=== PATIENT | male | born 1930 | race Caucasian/White ===

== ENCOUNTER → 2017-03-05 | Outpatient (CLI) | payer OTHER | LOC: FIMAGING 15:23 | PROVIDERS: ATTEND Physical Medicine & Rehabilitation | DX: M48.06 Spinal stenosis, lumbar region (principal) ==

== ENCOUNTER → 2018-11-10 | Outpatient (CLI) | payer OTHER ==
[~2018-11-10] MED LIST: IOPAMIDOL (ISOVUE 370) 100 ML BTL IV ONE
== END ==
LOC: FIMAGING 08:04
PROVIDERS: ATTEND Otolaryngology
DX: C02.9 Malignant neoplasm of tongue, unspecified (principal); R59.1 Generalized enlarged lymph nodes; E04.1 Nontoxic single thyroid nodule; I65.23 Occlusion and stenosis of bilateral carotid arteries
CPT/HCPCS: 70491; Q9967; 82565-PO

== ENCOUNTER 2018-11-21 06:21 | Inpatient (IN) | payer OTHER ==
[2018-11-21] MEDS ORDERED: AZITHROMYCIN 250 MG TAB PO ONE (06:32)
[2018-11-21] MEDS ORDERED: methylPREDNISolone SOD SUCC 125 MG/2 ML VIAL IVP ONE (06:32)
[2018-11-21] MEDS ORDERED: IPRATROPIUM/ALBUTEROL 3 ML DEYVIAL IH ONE (06:32)
--- NOTE | 2018-11-21 06:32 | EDPHY ---
H & P Stated Complaint: SOB Time Seen by Provider: 11/21/18 06:30 - Medical/Surgical History Hx Asthma: No Hx Chronic Respiratory Disease: Yes Hx Diabetes: No Hx Cardiac Disease: Yes Hx Renal Disease: No Hx Cirrhosis: No Hx Alcoholism: No Hx HIV/AIDS: No Hx Splenectomy or Spleen Trauma: No Other PMH: HTN, Hyperlipidemia - Social History Smoking Status: Never smoked Allergies/Adverse Reactions: aspirin [Aspirin] Allergy (Severe, Verified 11/21/18 06:26) Swelling/neck,face,throat TETRACYCLILNE Allergy (Mild, Uncoded 11/26/10 09:59) Rash Home Medications: Medication Instructions Recorded Acetaminophen [Tylenol ES 500 mg 500 mg PO DAILY PRN 05/11/15 (*)] Alfuzosin HCl [Uroxatral 10 MG] 10 mg PO HS 05/11/15 Amitriptyline HCl 25 mg PO HS 05/11/15 Diltiazem HCl [Diltiazem 24Hr ER] 240 mg PO HS 05/11/15 Ezetimibe [Zetia 10 MG (*)] 10 mg PO HS 05/11/15 Losartan Potassium [Cozaar] 100 mg PO HS 05/11/15 Lovastatin [Altoprev] 20 mg PO HS 05/11/15 Multivitamins [Multivitamin (*)] 1 tab PO DAILY 05/11/15 Niacin [Niacin 500 mg (*)] 500 mg PO HS 05/11/15 [place]-3 Ethyl Est-Lovaza [Lovaza 1 1 gm PO HS 05/11/15 gm (*)] Pantoprazole Sodium [Protonix 40mg 40 mg PO HS 05/11/15 (*)] TESTOSTERONE [Androgel 1.62% pump] 1 krystal TD DAILY 05/11/15 celeCOXIB [Celebrex (*)] 200 mg PO HS 05/11/15 Clindamycin 300 mg PO Q6 #0 cap 05/13/15 Departure - Departure Referrals: Patient,NotPresent [Primary Care Provider] - As per Instructions
--- NOTE | 2018-11-21 06:36 | EDPHY ---
H & P Stated Complaint: SOB Time Seen by Provider: 11/21/18 06:30 HPI/ROS: HPI The patient presents with shortness of breath and cough with chest congestion. 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 Garza. He went home and 2 days ago was doing well, tolerating fluids. Yesterday he felt worse, not eating much and was generally fatigued. When he went to bed last night his noted that he was congested and coughing a bit. This morning he awoke at 5 :00 a.m. Said he was having trouble breathing and a productive cough and wanted to go to the hospital. The patient worse 5 L of oxygen at all times for hypoxia related to likely underlying COPD. When paramedics arrived patient's sats were in the 80s. He required CPAP to improve his oxygenation. He has not had any chest pain. REVIEW OF SYSTEMS 10 systems were reviewed and negative with the exception of the elements mentioned in the history of present illness. PMHx: History of hypoxia on chronic home O2, COPD, MAGUE, CAD, hypertension, history of lung cancer status post VATS in 2011, primary care doctor is Dr. Leon Soc Hx: Lives at home with his PHYSICAL General Appearance: Alert, tachypneic, CPAP in place Eyes: Pupils equal and round no pallor or injection ENT, Mouth: Mucous membranes dry, right tongue with large area of yellowish granulation tissue, there is no significant edema of the tongue or the posterior pharynx Respiratory: Coarse breath sounds throughout all lung leiva with diminished breath sounds at left base, patient is tachypneic with retractions Cardiovascular: Tachycardic rate and regular rhythm Gastrointestinal: Abdomen is soft and non-tender, no masses, bowel sounds normal Neurological: A&O, moves all extremities Skin: Warm and dry, no rashes Musculoskeletal: Neck is supple non tender Extremities: symmetrical, full range of motion Psychiatric: Patient is oriented X 3, there is no agitation Source: Patient, Family, Old records Exam Limitations: Clinical condition - Personal History Current Tetanus/Diphtheria Vaccine: Yes - Medical/Surgical History Hx Asthma: No Hx Chronic Respiratory Disease: Yes Hx Diabetes: No Hx Cardiac Disease: Yes Hx Renal Disease: No Hx Cirrhosis: No Hx Alcoholism: No Hx HIV/AIDS: No Hx Splenectomy or Spleen Trauma: No Other PMH: HTN, Hyperlipidemia - Social History Smoking Status: Never smoked Constitutional: Initial Vital Signs Temperature (C) 37.3 C 11/21/18 06:25 Heart Rate 130 H 11/21/18 06:25 Respiratory Rate 46 H 11/21/18 06:25 Blood Pressure 159/87 H 11/21/18 06:25 O2 Sat (%) 92 11/21/18 06:25 O2 Delivery Mode Bi-Pap O2 (L/minute) 15 Allergies/Adverse Reactions: aspirin [Aspirin] Allergy (Severe, Verified 11/21/18 06:26) Swelling/neck,face,throat TETRACYCLILNE Allergy (Mild, Uncoded 11/26/10 09:59) Rash Home Medications: Medication Instructions Recorded Acetaminophen [Tylenol ES 500 mg 500 mg PO QID PRN 05/11/15 (*)] Alfuzosin HCl [Uroxatral 10 MG] 10 mg PO HS 05/11/15 [place]-3 Ethyl Est-Lovaza [Lovaza 1 1 gm PO HS 05/11/15 gm (*)] Pantoprazole Sodium [Protonix 40mg 40 mg PO HS 05/11/15 (*)] Calcium Carbonate [Tums 500MG (*)] 500 mg PO QID PRN 11/21/18 Cholecalciferol Vit D3 [Vitamin D3 1,000 unit PO DAILY 11/21/18 (*)] Doxazosin Mesylate [Cardura 1 MG 1 mg PO HS 11/21/18 (*)] Ipratropium Canones [IPRATROPIUM 2 sprays NASAL DAILY 11/21/18 BROMIDE] Medical Decision Making - Diagnostics EKG Interpretation: EKG: Complete interpretation has been separately recorded in the [facility] archive. Summary impression: Sinus tachycardia Imaging Results: Chest x-ray single view shows left lower lobe infiltrate, interpreted by me, radiology interpretation is pending. Imaging: I viewed and interpreted images myself Differential Diagnosis: This is an 87-year-old man with past medical history of COPD, lung CA status post VATS, MAGUE, CAD, hypertension, who is his 3 day postoperative from removal of a right tongue squamous cell carcinoma who presents brought in by ambulance emergently for shortness of breath and hypoxia. He usually wears about 5 L nasal cannula throughout the day, however was hypoxic despite this. Paramedics have placed him on CPAP with improvement in his saturations to the 80s. I met the paramedics at the bedside to obtain their report. The patient was started on our BiPAP with sats in high 80s. He is given nebs in-line. He will be given treatment for COPD exacerbation with Solu-Medrol. I will also cover him for aspiration pneumonia. Chest x-ray was performed showing left lower lobe pneumonia which could very well be due to aspiration. He was given Zosyn for coverage for aspiration pneumonia. He was given a fluid bolus. I consulted with the patient's primary care doctor Dr. Leon. We plan to admit the patient to the ICU. I talked to the patient's and she would like to avoid intubation unless it is an emergency and absolutely necessary. Since he has been here he has improved after receiving BiPAP with sats in the low 90s though he does have significant work of breathing. He remained on BiPAP throughout his time here. Critical Care Time: CRITICAL CARE Critical care time spent by me, Dr. Russell, exclusively with this patient was 45 minutes, exclusive of PA time and exclusive of procedures. The organ system at risk was respiratory, cardiac and I gave IV fluids, antibiotics, positive pressure ventilation, transfer the patient to the ICU, consulted with the patient's primary care doctor to prevent worsening of the patients condition. - Data Points Laboratory Results: Laboratory Results 11/21/18 06:35 11/21/18 06:35 Medications Given: Acetylcysteine (Acetylcysteine 20% Ih/Po) 2 ml IH QID MYNOR Stop: 05/20/19 15:59 Last Admin: 11/21/18 21:38 Dose: 2 ml Albuterol/Ipratropium (Duoneb) 3 ml IH QID MYNOR Stop: 05/20/19 15:59 Last Admin: 11/21/18 21:38 Dose: 3 ml Enoxaparin Sodium (Lovenox) 40 mg SC DAILY MYNOR Stop: 05/20/19 10:59 Last Admin: 11/21/18 12:02 Dose: 40 mg Potassium Chloride/Dextrose/Sod Cl (D5w 1/2 Ns W/ 20 Kcl/L) 1,000 mls @ 100 mls /hr IV CONT MYNOR Stop: 05/20/19 08:44 Last Admin: 11/21/18 09:55 Dose: 1,000 mls Azithromycin 500 mg/ Sodium (Chloride) 255 mls @ 255 mls/hr IV DAILY MYNOR PRN Reason: Protocol Stop: 12/21/18 08:59 Last Admin: 11/21/18 09:53 Dose: 255 mls Piperacillin/Tazobactam/Dextrose (Zosyn 3.375 Gm (Premix)) 50 mls @ 100 mls/hr IV Q6HRS MYNOR PRN Reason: Protocol Stop: 12/21/18 11:59 Last Admin: 11/21/18 19:03 Dose: 50 mls Famotidine/Sodium Chloride (Pepcid 20 Mg (Premix)) 50 mls @ 200 mls/hr IV Q12HRS MYNOR Stop: 05/20/19 20:59 Last Admin: 11/21/18 20:58 Dose: 50 mls Ipratropium Canones (Atrovent 0.06% Nasal) 2 sprays NS DAILY MYNOR Stop: 05/20/19 18:14 Last Admin: 11/21/18 18:22 Dose: 2 spr Methylprednisolone Sodium Succinate (Solu-Medrol) 60 mg IVP Q12 MYNOR Stop: 05/20/19 20:59 Last Admin: 11/21/18 20:58 Dose: 60 mg Morphine Sulfate (Morphine) 1 - 2 mg IVP Q1HR PRN PRN Reason: Pain, Severe Unable to Take PO Stop: 12/01/18 08:42 Last Admin: 11/21/18 18:16 Dose: 2 mg Discontinued Medications Albuterol/Ipratropium (Duoneb) 3 ml IH EDNOW ONE Stop: 11/21/18 06:33 Last Admin: 11/21/18 06:44 Dose: 3 ml Azithromycin (Zithromax) 500 mg PO EDNOW ONE PRN Reason: Protocol Stop: 11/21/18 06:33 Last Admin: 11/21/18 06:42 Dose: Not Given Ceftriaxone Sodium/Dextrose (Rocephin 1 Gm (Premix)) 50 mls @ 100 mls/hr IV EDNOW ONE PRN Reason: Protocol Stop: 11/21/18 07:01 Last Admin: 11/21/18 06:42 Dose: Not Given Sodium Chloride (Ns) 1,000 mls @ 0 mls/hr IV ONCE ONE; Wide Open PRN Reason: Protocol Stop: 11/21/18 06:33 Last Admin: 11/21/18 06:56 Dose: Not Given Piperacillin/Tazobactam/Dextrose (Zosyn (Premix)) 100 mls @ 200 mls/hr IV EDNOW ONE PRN Reason: Protocol Stop: 11/21/18 07:09 Last Admin: 11/21/18 06:54 Dose: 100 mls Sodium Chloride (Ns) 2,800 mls @ 5,600 mls/hr 30 ml/kg infuse over 30 min ( 2800 ml) IV EDNOW ONE PRN Reason: Protocol Stop: 11/21/18 07:19 Last Admin: 11/21/18 06:55 Dose: 2,800 mls Methylprednisolone Sodium Succinate (Solu-Medrol) 125 mg IVP EDNOW ONE Stop: 11/21/18 06:33 Last Admin: 11/21/18 06:41 Dose: 125 mg Point of Care Test Results: Chemistry 11/21/18 11/21/18 06:34 06:31 POC Sodium 139 mEq/L mEq/L (135-145) POC Potassium 3.8 mEq/L mEq/L (3.3-5.0) POC Chloride 99 mEq/L mEq/L (97-110) POC BUN 19 mg/dL mg/dL (7-23) POC Creatinine 0.6 mg/dL L mg/dL (0.7-1.3) POC Glucose 158 mg/dL H mg/dL (70-100) POC Troponin I 0.00 ng/mL ng/mL (0.00-0.08) ISTAT H&H 11/21/18 06:34 POC Hgb 13.3 gm/dL L gm/dL (13.7-17.5) POC Hct 39 % L % (40-51) Departure - Departure Disposition: [facility] Acute Clinical Impression: Aspiration pneumonia, Hypoxia, Tachycardia Condition: Critical
[2018-11-21] MEDS ORDERED: PIPERACILLIN/TAZO 4.5 GM/DEX 100 ML IV ONE (06:40)
[2018-11-21] MEDS: NS 1,000 ML IV ONE ×2 (06:41→06:56)
[2018-11-21] MEDS ORDERED: NS 2,800 ML IV ONE (06:50)
[2018-11-21] MEDS: AZITHROMYCIN IV 500 MG in NS 250 ML IV SCH (09:53)
[2018-11-21] MEDS: D5W 1/2 NS W/ 20 KCl/L 1,000 ML IV SCH (09:55)
[2018-11-21] MEDS ORDERED: IPRATROPIUM/ALBUTEROL 3 ML DEYVIAL IH PRN (10:41)
[2018-11-21] MEDS: ENOXAPARIN 40 MG/0.4 ML SYR SC SCH (12:02)
[2018-11-21] MEDS: PIPERACILLIN/TAZO 3.375 GM/DEX 50 ML IV SCH ×2 (12:50→19:03)
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
--- NOTE | 2018-11-21 14:01 | ASMTCMCOM ---
CM Note CM Note Notes: Pt is a 87 year old male who presents with pnemonia. Pt has a history of COPD and lung cancer. is on 5L home O2 at baseline. Pt recently had tumor on tounge removed. CM and Chapjameyan met with pt's Melvin for family meeting. 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 Melvin reports pt is "stuboorn" and often feels he doesn't think he can improve and does not always put forth effort to exercise. Pt is linked with Dr Phipps at [facility] and see's Dr. Morrison. Melvin is hopeful and appreciate that pt will see PT/OT/Speech here. CM provided education on outpatient services. Melvin reports pt reports his most pain is in his throat from where the intubation tube was during surgery. CM/churner provided education on Palliative Care services. Pt will likely say no at this time but Mitchellrichard was appreciative of information for the future. CM to continue to follow. Plan:D/C needs TBD at this time. Date Signed: 11/21/2018 02:01 PM Electronically Signed By:KENNY Nesbitt
--- NOTE | 2018-11-21 15:32 | PDMN ---
Medical Necessity Medical necessity: [facility] M283 Aspiration Pneumonia, 3 days: 87 yo presents w/ cough SOB in setting of recent large biopsy to R tongue three days prior. Workup reveals aspiration pneumonia and is clinically aspirating currently w/ bedside swallow eval. NPO. plan for video esophagram. Potential for NGT for nutrition. Treat w/ IV antibx, IVF. Pt w/ leukocytosis and elevated lactic acid 2.2. Tachy 130, O2 needs require CPAP/BIPAP, tachypneac w/ RR 24-40s. Admit to IP status in ICU. Meets IP criteria for asp PNA w/ hemodynamic instability, persistent tachypnea and hypoxemia. Hx COPD on chronic O2 5L, wedge resect RLL for lung ca
[2018-11-21] MEDS: ACETYLCYSTEINE 20% IH/PO 4 ML VIAL IH SCH ×2 (16:37→21:38)
[2018-11-21] MEDS: IPRATROPIUM/ALBUTEROL 3 ML DEYVIAL IH SCH ×2 (16:38→21:38)
[2018-11-21] MEDS ORDERED: ACETYLCYSTEINE 20% IH/PO 4 ML VIAL IH SCH (18:00)
[2018-11-21] MEDS: IPRATROPIUM 0.06% NASAL SPRAY NS SCH (18:22)
--- NOTE | 2018-11-21 20:33 | SOAPPROG ---
SOAP Progress Note Assessment/Plan: Assessment: Concern re fluid overload. Plan: Will check a CXR now. 11/21/18 20:32 Subjective: Much better than this morning. He does have excessivek fluid in velia back ofhis throat. He got 5 L of NS in the ER this morning due to concern regarding sepsis. Objective: Vital Signs Temp Pulse Resp BP Pulse Ox 99.7 F 72 20 90/50 L 90 L 11/21/18 20:00 11/21/18 20:00 11/21/18 20:00 11/21/18 20:00 11/21/18 20:00 11/20/18 11/21/18 11/22/18 05:59 05:59 05:59 Intake Total 3700 Output Total 360 Balance 3340 ICD10 Worksheet Patient Problems: Problems Problem Status Onset Aspiration pneumonia Acute Hypoxia Acute Tachycardia Acute Submental abscess Acute
[2018-11-21] MEDS: methylPREDNISolone SOD SUCC 125 MG/2 ML VIAL IVP SCH (20:58)
[2018-11-21] MEDS: FAMOTIDINE 20 MG/NACL 50 ML IV SCH (20:58)
[2018-11-22] MEDS: PIPERACILLIN/TAZO 3.375 GM/DEX 50 ML IV SCH ×2 (00:15→05:29)
[2018-11-22] MEDS: D5W 1/2 NS W/ 20 KCl/L 1,000 ML IV SCH ×2 (04:52→19:43)
[2018-11-22 04:57] LABS: PLATELET COUNT 212 10^3/uL (150-400)
[2018-11-22] MEDS: IPRATROPIUM/ALBUTEROL 3 ML DEYVIAL IH SCH ×4 (06:22→20:00)
[2018-11-22] MEDS: ACETYLCYSTEINE 20% IH/PO 4 ML VIAL IH SCH ×4 (06:23→20:00)
--- NOTE | 2018-11-22 06:31 | CPEKG ---
Test Reason : OPEN Blood Pressure : / mmHG Vent. Rate : 129 BPM Atrial Rate : 130 BPM P-R Int : 172 ms QRS Dur : 092 ms QT Int : 287 ms P-R-T Axes : 073 025 121 degrees QTc Int : 421 ms Sinus tachycardia Probable left atrial enlargement Repolarization abnormality, prob rate related Confirmed by Cynthia Russell ([id number]) on 11/22/2018 6:30:49 AM Referred By: PHYSICIAN ED Confirmed By:Cynthia Russell
[2018-11-22] MEDS: methylPREDNISolone SOD SUCC 125 MG/2 ML VIAL IVP SCH ×2 (09:25→19:42)
[2018-11-22] MEDS: AZITHROMYCIN IV 500 MG in NS 250 ML IV SCH (09:25)
[2018-11-22] MEDS: FAMOTIDINE 20 MG/NACL 50 ML IV SCH ×2 (09:25→19:42)
[2018-11-22] MEDS: ENOXAPARIN 40 MG/0.4 ML SYR SC SCH (09:25)
[2018-11-22] MEDS: IPRATROPIUM 0.06% NASAL SPRAY NS SCH (09:43)
--- NOTE | 2018-11-22 10:20 | GHP ---
[f rep st] HISTORY AND PHYSICAL DATE OF ADMISSION: 11/21/2018 REASON FOR ADMISSION: Aspiration pneumonia. HISTORY: The patient is an 87-year-old male who had surgery on his tongue for squamous cell carcinoma of the tongue on Wednesday. On Wednesday, he was able to eat liquids; however, on Wednesday he was not able to eat, developed a cough and a fever. He presented Wednesday morning with hypoxia and elevated white count and elevated lactic acid. PAST MEDICAL HISTORY: Significant for non-small cell lung cancer, status post resection with presumptive cure. He also has a history of central sleep apnea, chronic hypoxia, and back pain. He has an elevated coronary calcium score. History is not available from the patient because he is on a BiPAP, and he can in marginally communicate. His provided the history. He denies chest pain or palpitations. He has had a cough and has had fever. PHYSICAL EXAM: GENERAL: An 87-year-old male, wearing a BiPAP mask set at 12 respirations per minute. He is overriding at 24 respirations per minute. His saturations, however, are 100% on supplemental oxygen. He responds to questions with thumbs up, thumbs down. He denies being in significant discomfort at this time although does have swollen lips. VITAL SIGNS: Blood pressure when he presented was 159/87, heart rate of 130, respiratory rate was 46. That was at 6:25 in the morning. By 2:00 in the afternoon, his blood pressure was 142/52. Oxygen saturation was 90% on 5 L, respiratory rate of 26. LUNGS: Reveal scattered rhonchi. HEART: Regular rate, slightly irregular rhythm, slightly rapid rate. ABDOMEN: Nontender. He has no peripheral edema. IMPRESSION: Probable aspiration pneumonia related to his tongue surgery. PLAN: We will place on IV antibiotics. Because of his recent surgery, he will need extended-spectrum antibiotics. We will support him. His blood pressure is good. He had an elevated lactate; however, that is likely related to his hypoxia. He has a long history of central hypoventilation and chronic hypoxia, and he can be very comfortable with an oxygen saturation of 82%. We will place on IV antibiotics, continue support. We will try to avoid intubation. /[id number]/MODL MTDD
[2018-11-22] MEDS: ERTAPENEM 1 GM in NS 100 ML IV SCH (10:46)
--- NOTE | 2018-11-22 12:55 | PDINTPN ---
General Maintenance Technician Progress Note Assessment/Plan: Assessment: Bibasilar pneumonia, probable aspiration. On ertapenem and azithromycin. The latter for 5 days. Clinically better, secretions improving Status post tongue biopsy/partial resection. Phonation improved today. Doing better. Aspiration/aspiration risk. Speech to re-evaluate patient today. Will likely need a [place] barium swallow. COPD: With exacerbation. On bronchodilators and steroids, mucolytics. Prophylaxis: On enoxaparin and famotidine. Anemia: Hematocrit down to 27. Multifactorial. Following. Metabolic: No issues identified. Plan: Continue antibiotics. Continue bronchopulmonary therapies. Can decrease steroids. Follow x-ray intermittently. Follow laboratory. Will discuss with speech therapy after they see patient today. If not clearly better regarding aspiration/aspiration risk will proceed with [place] barium swallow. 35 min of critical care time spent directly with the patient managing issues as outlined above. Discussed with the patient and his , Dr. Leon, respiratory, nursing, and the ICU multidisciplinary team. Subjective: Feels better. Less cough. Able to bring up a small amount of sputum at times. Less short of breath. Objective: Vital Signs Temp Pulse Resp BP Pulse Ox 36.9 C 84 23 H 116/49 L 89 L 11/22/18 11:48 11/22/18 11:48 11/22/18 11:48 11/22/18 11:48 11/22/18 11:48 Microbiology 11/21/18 13:00 - Final Sputum, Expectorated Laboratory Results 11/22/18 04:25 11/22/18 04:25 11/21/18 11/22/18 11/23/18 05:59 05:59 05:59 Intake Total 5060 Output Total 660 225 Balance 4400 -225 Laboratory Tests 11/22/18 04:25 Calcium 8.7 Phosphorus 3.0 Magnesium 2.2 AST 37 ALT 28 Albumin 3.0 L CXR: Some progression of bibasilar infiltrate seen. Physical Exam - Physical Exam General Appearance: alert, no apparent distress, other (Phonation is much better ) EENT: PERRL/EOMI, other (Nasal cannula in place at 5 L: His baseline.) Neck: normal inspection (No JVD) Respiratory: decreased breath sounds, rales (Bibasilar rales), rhonchi (Few rhonchi present today, much better.), other (e to a changes at the left base is present), No lungs clear, No normal breath sounds, No wheezing Cardiac/Chest: regular rate, rhythm, No gallop Abdomen: normal bowel sounds, non-tender, soft Male Genitalia: other (No Gregg catheter) Skin: normal color, warm/dry Extremities: pedal edema (Trace) Neuro/Psych: no motor/sensory deficits (Weak), No cognition abnormalities ICD10 Worksheet Patient Problems: Problems Problem Status Onset Submental abscess Acute Aspiration pneumonia Acute Hypoxia Acute Tachycardia Acute
--- NOTE | 2018-11-22 21:58 | SOAPPROG ---
SOAP Progress Note Assessment/Plan: Assessment: Pneumonia improved. No significant fluid overload. Probable drug reaction, suspect zosyn Plan: Continue with antibiotics. Will change from zosyn due to rash. 11/21/18 20:32 11/22/18 21:56 11/22/18 21:57 Subjective: Feeling better. No pain. SOB improved. Cough reduced Objective: Vital Signs Temp Pulse Resp BP Pulse Ox 98.1 F 80 21 H 120/52 L 93 11/22/18 19:32 11/22/18 19:32 11/22/18 19:32 11/22/18 19:32 11/22/18 19:32 Microbiology 11/21/18 13:00 - Final Sputum, Expectorated Laboratory Results 11/22/18 04:25 11/22/18 04:25 11/21/18 11/22/18 11/23/18 05:59 05:59 05:59 Intake Total 5060 1569 Output Total 660 725 Balance 4400 844 Cor RRR. Lungs with scattered rhonchi, improved significantly from last night. Video esophagram reviewed. Speech input appreciated. Diffuse red, non-pruritic rash on body. ICD10 Worksheet Patient Problems: Problems Problem Status Onset Aspiration pneumonia Acute Hypoxia Acute Tachycardia Acute Submental abscess Acute
[2018-11-23] MEDS: ACETYLCYSTEINE 20% IH/PO 4 ML VIAL IH SCH (05:34)
[2018-11-23] MEDS: IPRATROPIUM/ALBUTEROL 3 ML DEYVIAL IH SCH ×2 (05:34→11:27)
[2018-11-23] MEDS: IPRATROPIUM 0.06% NASAL SPRAY NS SCH (05:59)
[2018-11-23] MEDS: D5W 1/2 NS W/ 20 KCl/L 1,000 ML IV SCH ×2 (06:01→08:09)
[2018-11-23] MEDS: ERTAPENEM 1 GM in NS 100 ML IV SCH (08:04)
[2018-11-23] MEDS: FAMOTIDINE 20 MG/NACL 50 ML IV SCH (08:04)
[2018-11-23] MEDS: methylPREDNISolone SOD SUCC 125 MG/2 ML VIAL IVP SCH (08:04)
[2018-11-23] MEDS: ENOXAPARIN 40 MG/0.4 ML SYR SC SCH (08:04)
[2018-11-23] MEDS: AZITHROMYCIN IV 500 MG in NS 250 ML IV SCH (08:05)
[2018-11-23] MEDS ORDERED: OXYCODONE/APAP 5/325 TAB PO PRN (09:07)
--- NOTE | 2018-11-23 09:07 | SOAPPROG ---
SOAP Progress Note Assessment/Plan: Assessment: Plan: 11/23/18 09:06 COPD with probable aspiration pneumonia related to tongue bx surgery last wednesday. He has made great progress. Will d/c home on Augmentin, Zithomax and prednisone. Will continue oxygen therapy as he has this at home. low back pain, refill percocet Subjective: Andrea feels well and wants to go home. Walking, eating and toileting well. No SOB above baseline. Saturations and oxygen requirements at baseline Objective: Vital Signs Temp Pulse Resp BP Pulse Ox 36.2 C 67 18 167/67 H 94 11/23/18 07:33 11/23/18 07:33 11/23/18 07:33 11/23/18 07:33 11/23/18 07:33 Microbiology 11/21/18 13:00 - Final Sputum, Expectorated Laboratory Results 11/22/18 04:25 11/22/18 04:25 11/22/18 11/23/18 11/24/18 05:59 05:59 05:59 Intake Total 5060 2811 Output Total 660 1275 125 Balance 4400 1536 -125 Gen: Bright Lungs: diminished BS, minimal productivity with cough, crackle in bases R>L Heart: RRR Abd + bs , soft LE's williams edema ICD10 Worksheet Patient Problems: Problems Problem Status Onset Aspiration pneumonia Acute Hypoxia Acute Tachycardia Acute Submental abscess Acute
[2018-11-23 10:52] LABS: PLATELET COUNT 272 10^3/uL (150-400)
--- NOTE | 2018-11-23 11:06 | ASMTDCNOTE ---
Case Management Discharge Discharge Order Complete? Answers: Yes Patient to Obtain Answers: via Family Medications Transportation Arranged Answers: Family/Friends Faxed Final Orders Answers: Yes Agency/Facility Transfer Answers: Yes Report Printed & Faxed to Receiving Agency Family Notified Answers: Yes Discharge Comments Notes: CM met with pt and discussed with RN/Therapies. PT/OT recommending Homecare. Pt was reluctant but was eventually agreeable to [facility] homecare if they come the 2nd day after discharge. CM provided information to [facility]. CM answered questions and concerns. Family to transport. CM called and left message for ESPERANZA Alberto at ([phone]) to request interagency form for PT/OT. No other CM needs identified at this time. Date Signed: 11/23/2018 11:04 AM Electronically Signed By:KENNY Nesbitt
--- NOTE | 2018-11-23 11:08 | ASDISCHSUM ---
Discharge Information Plan Status:Home with Home Health Medically Cleared to Leave: Discharge Date: D/C Disposition:Home Health Service ADT D/C Disposition: Projected Discharge Date: Transportation at D/C:Family Discharge Delay Reason: Follow-Up Date: Discharge Slot: Final Diagnosis: Placement Information Patient Contact Information Contact Name:HERBERHEBERTADI Relationship: Address:[address] [place] [address] City:[place] Alternate Phone: State/Zip Code:[place] [address] Email: Financial Information Financial Class:Medicare Primary Plan Desc:MEDICARE INPATIENT Primary Plan Number:[id number] Secondary Plan Desc:DANYELLE ORTIZ PPO POS Secondary Plan Number:[id number] Assessment Information [facility] Progress Note CM Note CM Note Notes: Pt is a 87 year old male who presents with pnemonia. Pt has a history of COPD and lung cancer. is on 5L home O2 at baseline. Pt recently had tumor on tounge removed. NAHEED and Brannon met with pt's Melvin for family meeting. 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 Melvin reports pt is "stuboorn" and often feels he doesn't think he can improve and does not always put forth effort to exercise. Pt is linked with Dr Phipps at [facility] and see's Dr. Morrison. Melvin is hopeful and appreciate that pt will see PT/OT/Speech here. CM provided education on outpatient services. Melvin reports pt reports his most pain is in his throat from where the intubation tube was during surgery. CM/cooker loader provided education on Palliative Care services. Pt will likely say no at this time but Melvin was appreciative of information for the future. CM to continue to follow. Plan:D/C needs TBD at this time. Date Signed: 11/21/2018 02:01 PM Electronically Signed By:KENNY Nesbitt LACE LACE Length of stay for Answers: 2 days current admission Acuity / Level of Answers: Yes Care: Did the patient have an inpatient admission? Comorbidities - select Answers: Any tumor (including all that apply lymphoma or leukemia) Chronic pulmonary disease Coronary Artery Disease Other Notes: HTN; HLD # of Emergency department Answers: 1-2 visits in the last 6 months Score: 13 Date Signed: 11/23/2018 11:07 AM Electronically Signed By:KENNY Nesbitt Case Management Discharge Plan Note Case Management Discharge Discharge Order Complete? Answers: Yes Patient to Obtain Answers: via Family Medications Transportation Arranged Answers: Family/Friends Faxed Final Orders Answers: Yes Agency/Facility Transfer Answers: Yes Report Printed & Faxed to Receiving Agency Family Notified Answers: Yes Discharge Comments Notes: CM met with pt and discussed with RN/Therapies. PT/OT recommending Homecare. Pt was reluctant but was eventually agreeable to [facility] homecare if they come the 2nd day after discharge. CM provided information to [facility]. CM answered questions and concerns. Family to transport. CM called and left message for ESPERANZA Alberto at ([phone]) to request interagency form for PT/OT. No other CM needs identified at this time. Date Signed: 11/23/2018 11:04 AM Electronically Signed By:KENNY Nesbitt Intervention Information Intervention Type:No Admission Order Date of Service:11/21/2018 03:19 PM Patient Type:Inpatient Staff Member:Jade Jose Hours: Discipline: Severity: Comment:
--- NOTE | 2018-11-23 11:41 | PDINTPN ---
Mang[facility] Wheeler Progress Note Assessment/Plan: Assessment: Bibasilar pneumonia, probable aspiration. On ertapenem and azithromycin. The latter for 5 days. Clinically better, secretions resolving. To be discharged today to complete azithromycin and a course of Augmentin Status post tongue biopsy/partial resection. Phonation improved. Doing better. Aspiration/aspiration risk. Swallow evaluation yesterday with fluoroscopy indicated only a propensity towards aspiration. Placed on a dysphagia 2 diet and educated. COPD: With exacerbation. On bronchodilators and steroids, mucolytics. Improved, tapering. Prophylaxis: On enoxaparin and famotidine. Anemia: Hematocrit improved, 31 today. Multifactorial. Following. Metabolic: No issues identified. Plan: Continue antibiotics as above. Wean bronchodilator treatments and steroids. Agree with plans for discharge today. Continue swallowing precautions at home. Short-term follow-up in PCP office arranged. 20 min of critical care time spent directly with the patient managing issues as outlined above. Discussed with the patient and his , Luc Gamboa ESPERANZA, respiratory, and nursing. Subjective: Doing better. Feels his breathing is now closer to baseline. Coughing up a little mucus at this point. Wants to go home. Objective: Vital Signs Temp Pulse Resp BP Pulse Ox 36.2 C 67 18 167/67 H 94 11/23/18 07:33 11/23/18 07:33 11/23/18 07:33 11/23/18 07:33 11/23/18 07:33 Microbiology 11/21/18 13:00 - Final Sputum, Expectorated Laboratory Results 11/23/18 10:30 11/22/18 04:25 11/22/18 11/23/18 11/24/18 05:59 05:59 05:59 Intake Total 5060 2811 Output Total 660 1275 125 Balance 4400 1536 -125 Physical Exam - Physical Exam General Appearance: alert, no apparent distress, other (Much brighter, up in the chair. Stronger voice) EENT: PERRL/EOMI, other (Nasal cannula at 5 L, his baseline) Neck: normal inspection (No JVD) Respiratory: decreased breath sounds (Improving aeration bilaterally. Breath sounds do remain decreased), rales (Improved rales at bases. Consolidative changes resolved.), No normal breath sounds, No respiratory distress, No rhonchi (Currently), No wheezing Cardiac/Chest: regular rate, rhythm, systolic murmur, No gallop Abdomen: normal bowel sounds, non-tender, soft Skin: normal color, warm/dry Extremities: pedal edema (Trace) Neuro/Psych: no motor/sensory deficits (Moves all extremities equally), speech abnormalities (Improved), No cognition abnormalities ICD10 Worksheet Patient Problems: Problems Problem Status Onset Submental abscess Acute Aspiration pneumonia Acute Hypoxia Acute Tachycardia Acute
[2018-11-23 11:45] VITALS: BP 166/57
--- NOTE | 2018-11-23 12:30 | PDIAF ---
- Diagnosis Diagnosis: pneumonia Code Status: Full Code - Medication Management Fdc Antibiotics: augmentin 500 mg TID, Zithromax 250 mg 2 pills daily Composition Floor Layer Antibiotic Stop Date: 11/30/18 (augmentin stop 2/ zithro stop after 3 doses ) Discharge Medications: electronically signed and located in the Home Medication List. PICC Care - Routine: N/A - Orders Services needed: Physical Therapy, Occupational Therapy, Speech Language Pathologist Isolation Type: Droplet Isolation Oxygen: 5 lpm Diet Recommendation: no restrictions on diet Diet Texture: Dysphagia 2 - Mechanically Altered - Chopped, Ground, Dysphagia 1 - Pureed, Thin Liquids, Meds Whole in Puree, Meds Crushed in Puree Gregg: No - Follow Up Care Current Providers and Referrals: Patient,NotPresent [Unknown] - As per Instructions
--- NOTE | 2018-11-23 12:52 | GDS ---
[f rep st] DISCHARGE SUMMARY REASON FOR ADMISSION: Pneumonia. DISCHARGE DIAGNOSIS: Pneumonia. HOSPITAL COURSE: Patient was admitted through the ER due to feeling significantly weak, poor and brenda rt of breath. 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 He had had some difficulty eating and drinking over the weekend, which likely co ntributed to an aspiration event. He has a diagnosis consistent with aspiration pneumonia. He has u nderlying COPD and a history of non-small cell lung cancer removed by partial lobectomy. His underly ing COPD was also inflamed by this. He was placed on initially higher doses of oxygen. This has bee n tapered down to his baseline of 5 L/minute. He has been on steroids with improvement in overall se nse of shortness of breath and congestion. His cough has been less productive. At day of discharge, he requested to go home. He states his oxygen saturations are at baseline. Needs at 5 L/minute. H e is not short of breath. His cough is minimally productive. He is able to eat, drink and toilet wi thout difficulty. He feels his strength is reasonable. DISPOSITION: Given the above, he will be discharged home on Augmentin 500 mg t.i.d. with food x7 day s. He will have 3 more doses of Zithromax and 500 mg once daily, total daily dose, x3 days. He will continue with prednisone 20 mg b.i.d. Continue DuoNebs at home q.i.d. He will have home healthcare for further work regarding speech therapy and swallowing. He will have outpatient followup in the n ext 2 days. /[id number]/MODL
[2018-11-23] MEDS ORDERED: AMOX/CLAVULANATE 500/125 MG TAB PO SCH (14:00)
[2018-11-23] MEDS ORDERED: predniSONE 20 MG TAB PO SCH (18:00)
[2018-11-24] MEDS ORDERED: AZITHROMYCIN 250 MG TAB PO SCH (09:00)
--- NOTE | 2018-11-28 10:25 | PQFORM ---
PHYSICIAN QUERY FORM Needs Your Response This query form is being sent to you to assure this patient record is coded properly. Please respond to the question below: PYTHON DJANGO DEVELOPER QUESTION: Dear Luc, On the consultation by Dr. Greg Lux, he states the patient has acute respiratory failure, moderate, hypoxemic requiring a simple mask. The patient was admitted through the ED wearing a BiPAP mask throughout his time there and was admitted to the ICU to continue positive pressure ventilation. Based on the clinical findings and your professional judgment, can his shortness of breath be further defined as: __x___ Acute hypoxemic respiratory failure on chronic respiratory failure Acute hypoxemic respiratory failure Chronic respiratory failure with increased hypoxemia Hypoxemia Shortness of breath (as stated) Other Thank you for clarifying, LAN Munguia HIM Coding INSTRUCTIONS FOR RESPONSE: Answer question by clicking on the "Edit Document" button. Move cursor to area below the stars. When complete, hit "Save." Click on the "Sign" button, then click "Sign" again. Type in your PIN and hit "Enter." MTDD
== END 2018-11-23 13:47 | disposition home health service (06) | DRG 177 ==
LOC: EDUNIT# → F2N 07:48
PROVIDERS: ADMIT Internal Medicine; ATTEND Internal Medicine
PROC: 5A09358 Assistance with Respiratory Ventilation, Less than 24 Consecutive Hours, Intermittent Positive Airway Pressure (ICD-10-PCS; principal; 2018-11-21)
DX: J69.0 Pneumonitis due to inhalation of food and vomit (principal); J96.21 Acute and chronic respiratory failure with hypoxia; J44.9 Chronic obstructive pulmonary disease, unspecified; I10 Essential (primary) hypertension; E78.5 Hyperlipidemia, unspecified; K21.9 Gastro-esophageal reflux disease without esophagitis; L27.0 Generalized skin eruption due to drugs and medicaments taken internally; T36.0X5A Adverse effect of penicillins, initial encounter; R13.10 Dysphagia, unspecified; Z85.118 Personal history of other malignant neoplasm of bronchus and lung; Z85.810 Personal history of malignant neoplasm of tongue; Z99.81 Dependence on supplemental oxygen; Z90.2 Acquired absence of lung [part of]; Z98.890 Other specified postprocedural states
CPT/HCPCS: 82435-PO; 82565-PO; 82947-PO; 84132-PO; 84295-PO; 84484-ER; 84520-PO; 85014-ER; 92526-GN; 92610-GN; 92611-GN; 96365; 97161-GP; 97166-GO; J0456; J0696; J1335; J1650; J2270; J2543; J2930; J7608